=== PATIENT | female | born 1960 | race Caucasian/White ===

== ENCOUNTER → 2020-02-25 16:04 | Outpatient (CLI) | payer OTHER, SELFPAY ==
--- NOTE | ~2020-02-25 | MM_ITS ---
EXAMINATION: MM screening [facility] BI w fermin HISTORY: Screening mammogram TECHNIQUE: Craniocaudal and mediolateral oblique 3-D tomosynthesis images were obtained and synthetic 2-D images were generated. CAD analysis was submitted and interpreted. COMPARISON: 12/01/2018, 10/06/2017, 01/21/2014 BREAST PARENCHYMAL COMPOSITION: There are scattered areas of fibroglandular density. FINDINGS: Stable masses in the posterior third of the left breast are again noted. There is no eviden ce of suspicious mass, calcification, or architectural distortion to suggest malignancy in either narciso ast. There has been no suspicious interval change. IMPRESSION: 1. No mammographic evidence of malignancy. 2. Recommend routine screening mammography in one year. BI-RADS Category 2: Benign finding(s). Reviewed, dictated and finalized at location A. R SCRUBBER
== END ==
PROVIDERS: Visit Provider Student in an Organized Health Care Education/Training Program
DX: Z12.31 Encounter for screening mammogram for malignant neoplasm of breast (principal)
CPT/HCPCS: 77063; 77067

== ENCOUNTER → 2022-03-22 15:13 | Outpatient (CLI) | payer OTHER, SELFPAY ==
--- NOTE | ~2022-03-22 | MM_ITS ---
EXAMINATION: MM screening [facility] BI w fermin HISTORY: Screening mammogram TECHNIQUE: Craniocaudal and mediolateral oblique 3-D tomosynthesis images were obtained and synthetic 2-D images were generated. CAD analysis was submitted and interpreted. COMPARISON: 02/25/2020, 12/10/2018, 10/06/2017 BREAST PARENCHYMAL COMPOSITION: There are scattered areas of fibroglandular density. FINDINGS: Again noted are stable masses in the posterior third of the left breast No suspicious mass, calcification, or architectural distortion are identified in either breast to suggest malignancy. Th ere has been no suspicious interval change. IMPRESSION: 1. No mammographic evidence of malignancy. 2. Recommend routine screening mammography in one year. BI-RADS Category 2: Benign finding(s). Reviewed, dictated and finalized at location A. FOREMAN
== END ==
PROVIDERS: PCP Physician Assistant; Visit Provider Obstetrics & Gynecology
DX: Z12.31 Encounter for screening mammogram for malignant neoplasm of breast (principal)
CPT/HCPCS: 77063; 77067

== ENCOUNTER 2022-11-25 01:15 | Day surgery (SDC) | payer OTHER, SELFPAY ==
[2022-11-20 10:34] VITALS: BMI 42.7
[2022-11-25 11:11] VITALS: BP 171/95; PULSE 75; RESP 18; TEMP 36.5; O2SAT 97
[2022-11-25] MEDS: LACTATED RINGERS 1,000 ML 150 ML IV CONT (11:20)
--- NOTE | 2022-11-25 11:47 | PM.HPGS ---
History of Present Illness History of Present Illness Consent: Risks, benefits, and alternatives have been discussed and questions answered. Patient agrees to proceed with procedure. Chief complaint: positive cologuard Narrative: Bela Rodriguez is a 62 year old female Presents for screening colonoscopy. Patient recently found to have positive Cologuard test. Patient reports her current weight appetite and bowel movements are normal. Patient denies abdominal pain. She has had no bleeding. Family history is significant for an aunt with colon cancer. A brother with colon polyps. Review of Systems Review of Systems: Review of systems noncontributory. [facility] Surgical History Surgical History History of colonoscopy 2011 History of partial hysterectomy Hx of cholecystectomy Family History Family History Father Cerebrovascular accident Family history of diabetes mellitus in first degree relative Family history of heart disease in male family member before age 55 Family history of hemochromatosis Family history of congestive heart failure Patient's father is Diabetes mellitus Family history of congenital heart disease Family history of genetic disorder Mother Family history of heart disease in male family member before age 55 Family history of coronary artery disease Family history of congenital heart disease Family history of arthritis Grandparent Family history of malignant neoplasm Other Family history of allergic disorder Family history of cardiovascular disease Family history of kidney disease Hypertension Social History Social History Smoking packs per day: 1 Smoking cigarettes per day: 20.0 Smoking status: Former smoker Tobacco type: cigarettes Second hand tobacco smoke exposure: No Alcohol intake: never Substance use: never Substance use type: does not use Lack of Transportation: No Lack of Food: Never True Current Housing: I Have Housing Concerned About Future Housing: No Difficulty Paying Gas/Electric Bills: No Difficulty Paying for Meds: No Currently Unemployed: No Education: High School Diploma/GED Difficulty w/ Childcare or Family Care: No Living arrangements: alone Spiritual care concerns: No Meds Home Medications and Allergies Home Medications Medication Instructions Recorded Confirmed Type omeprazole 20 mg capsule,delayed 20 mg PO DAILY #90 caps 11/01/19 11/20/22 Rx release estradiol 0.05 mg/24 hr semiweekly 1 patch transdermal 2XW 12/08/19 11/20/22 History transdermal patch (Vivelle-Dot) lisinopril 20 1 tablet PO DAILY #90 tabs 12/24/21 11/20/22 Rx mg-hydrochlorothiazide 25 mg tablet multivitamin with minerals-folic 1 tablet PO DAILY 11/20/22 11/20/22 History acid 0.4 mg tablet Allergies Allergy/AdvReac Type Severity Reaction Status Date / Time ketorolac Allergy Intermediate Hives Verified 11/25/22 11:10 azithromycin Allergy Mild Rash Verified 11/25/22 11:10 milnacipran Allergy Unknown unkown Verified 11/25/22 11:10 Vital Signs Vital Signs - 24 hr 11/25/22 11:11 Temperature 97.7 F Pulse Rate 75 Respiratory Rate 18 Blood Pressure 171/95 H Pulse Oximetry 97 Oxygen Delivery Room Air Exam Narrative: Physical exam reveals patient to be alert. Oriented x3. Vital signs stable. HEENT exam is unremarkable. Patient is anicteric. Lungs are clear to auscultation and percussion. Heart is without murmur or extra sounds. Abdomen bowel sounds are present soft nontender with no organomegaly. Digital external rectal exam is normal. Assessment and Plan Assessment and plan (1) Positive colorectal cancer screening using Cologuard test: Code(s): R19.5 - Other fecal abnormalities Status: Acute Assessme
--- NOTE | 2022-11-25 12:22 | WPDANESEPPF ---
Anes - Initial Pre Proc Eval Procedure: Operation Date: 11/25/22 12:30 Proposed Procedures p Colonoscopy - Mich Valdes MD Date/Time: 11/25/22 12:22 Surgeon: Mich Valdes MD Pre Op Diagnosis: positive cologuard Patient Data Age: 62 Gender: F Height: 1.61 m Weight: 108.4 kg Last Vital Signs Temp 97.7 F 11/25/22 11:11 Pulse 75 11/25/22 11:11 Resp 18 11/25/22 11:11 BP 171/95 H 11/25/22 11:11 Pulse Ox 97 11/25/22 11:11 O2 Del Method Room Air 11/25/22 11:11 Allergies Allergy/AdvReac Type Severity Reaction Status Date / Time ketorolac Allergy Intermediate Hives Verified 11/25/22 11:10 azithromycin Allergy Mild Rash Verified 11/25/22 11:10 milnacipran Allergy Unknown unkown Verified 11/25/22 11:10 Home Medications Medication Instructions Recorded Confirmed Type omeprazole 20 mg capsule,delayed 20 mg PO DAILY #90 caps 11/01/19 11/20/22 Rx release estradiol 0.05 mg/24 hr semiweekly 1 patch transdermal 2XW 12/08/19 11/20/22 History transdermal patch (Vivelle-Dot) lisinopril 20 1 tablet PO DAILY #90 tabs 12/24/21 11/20/22 Rx mg-hydrochlorothiazide 25 mg tablet multivitamin with minerals-folic 1 tablet PO DAILY 11/20/22 11/20/22 History acid 0.4 mg tablet Patient hx anesthesia problems: none Family hx anesthesia problems: none Results Review: All pre-operative results and documents have been reviewed as part of the pre-operative evaluation. [facility] Surgical History Surgical History History of colonoscopy 2011 History of partial hysterectomy Hx of cholecystectomy Family History Family History Father Cerebrovascular accident Family history of diabetes mellitus in first degree relative Family history of heart disease in male family member before age 55 Family history of hemochromatosis Family history of congestive heart failure Patient's father is Diabetes mellitus Family history of congenital heart disease Family history of genetic disorder Mother Family history of heart disease in male family member before age 55 Family history of coronary artery disease Family history of congenital heart disease Family history of arthritis Grandparent Family history of malignant neoplasm Other Family history of allergic disorder Family history of cardiovascular disease Family history of kidney disease Hypertension Social History Social History Smoking packs per day: 1 Smoking cigarettes per day: 20.0 Smoking status: Former smoker Tobacco type: cigarettes Second hand tobacco smoke exposure: No Alcohol intake: never Substance use: never Substance use type: does not use Lack of Transportation: No Lack of Food: Never True Current Housing: I Have Housing Concerned About Future Housing: No Difficulty Paying Gas/Electric Bills: No Difficulty Paying for Meds: No Currently Unemployed: No Education: High School Diploma/GED Difficulty w/ Childcare or Family Care: No Living arrangements: alone Spiritual care concerns: No Anes - Eval Final PreProcedure Day of Procedure 11/25/22 12:22 Patient weight: morbidly obese Heart: regular rate and rhythm Lungs: clear to auscultation Airway: Mallampati scale class III Neurological: alert and oriented Last oral intake: >/= 8 hours ASA classification: III Emergent: no Anesthetic plan: proceed Anesthesia type and monitoring: general GIVS and standard monitoring Results Review: All pre-operative results and documents have been reviewed as part of the pre-operative evaluation. Informed Consent: The patient's anesthetic plan and its attendant risks and benefits were discussed with the patient/family/POA. Questions were solicited and answers provided to the satisfaction of the patient/family/POA.
[2022-11-25] MEDS: SIMETHICONE ORAL SUSPENSION 20 MG/0.3 ML 30 ML BOTTLE 0.6 ML IRRIGATION (12:48)
[2022-11-25 12:58] VITALS: BP 147/89; PULSE 73; RESP 16; O2SAT 96
[2022-11-25 13:08] VITALS: BP 128/86; PULSE 60; RESP 16; O2SAT 98
[2022-11-25 13:18] VITALS: BP 148/81; PULSE 63; RESP 21; O2SAT 97
== END 2022-11-25 13:31 | disposition home or self-care (01) ==
PROVIDERS: PCP Physician Assistant; Visit Provider Internal Medicine Gastroenterology
PROC: 0DJD8ZZ Inspection of Lower Intestinal Tract, Via Natural or Artificial Opening Endoscopic (ICD-10-PCS; CPT 45378; principal; 2022-11-25 12:30)
DX: Z12.11 Encounter for screening for malignant neoplasm of colon (principal); K57.30 Diverticulosis of large intestine without perforation or abscess without bleeding; K64.8 Other hemorrhoids; R19.5 Other fecal abnormalities; Z87.891 Personal history of nicotine dependence; E66.01 Morbid (severe) obesity due to excess calories; Z68.41 Body mass index [BMI] 40.0-44.9, adult; Z82.3 Family history of stroke
CPT/HCPCS: 45378; J2704; J7120

== ENCOUNTER 2024-02-20 07:50 | Outpatient (CLI) | payer OTHER, SELFPAY ==
--- NOTE | 2024-03-09 18:57 | WPDHOMESLEEP ---
Sleep Study - Home Unattended Date of Study: 02/20/24 Ordering Provider: Thuan Heredia DO Interpreting Provider: Jen Rosas DO Home Sleep Study Type: Watch PAT Height: 1.61 m Weight: 112.945 kg Body Mass Index: 43.4 Neck Circumference (inches): 18 [place]: 9 Reason for Sleep Study Snoring Sleep History The patient is a 64-year-old female that had a sleep study ordered by her primary care physician for evaluation of sleep apnea. The patient admits to snoring loudly, breathing interruptions during sleep and difficulty maintaining sleep. She denies stopping breathing in her sleep. She denies choking or gasping while asleep. She does have difficulty breathing while on her back. She denies morning headaches. She does have a dry or sore mouth/ throat in the morning. She admits to nocturnal heartburn. She denies nocturia. She denies having trouble falling asleep. She admits to having trouble remaining asleep. She denies having difficulty returning to sleep if she wakes up during the night. She denies using any hypnotics or sedatives. She denies feeling anxious about sleep. She does feel tired or fatigued during the day. She does feel on refreshed in the morning. She denies having the urge to fall asleep during the day. She denies feeling drowsy while driving. She denies sleep paralysis, cataplexy and hypnagogic / hypnopompic hallucinations. She admits to clenching and grinding her teeth while asleep. She denies kicking or jerking her legs excessively at night. She denies having a restless feeling in her legs. She goes to bed at 11:00 p.m. every night. It takes her 15 minutes to fall asleep. She gets 6 hours of sleep on her work days and 7-1/2 hours of sleep on her days off. Her sleep is somewhat restorative on her days off. She does take a planned naps in the afternoon that is less than 1 hour. The patient denies dream enactment behavior. She denies sleep walking is an adult and a child. She consumes 1-2 caffeinated beverages per day. She denies alcohol and tobacco use. She exercises 1-2 nights per week. [facility] Past Medical History Medical History Morbid obesity Surgical History Surgical History History of colonoscopy 2012 History of partial hysterectomy Hx of cholecystectomy Family History Family History Father Cerebrovascular accident Family history of diabetes mellitus in first degree relative Family history of heart disease in male family member before age 55 Family history of hemochromatosis Family history of congestive heart failure Patient's father is Diabetes mellitus Family history of congenital heart disease Family history of genetic disorder Mother Family history of heart disease in male family member before age 55 Family history of coronary artery disease Family history of congenital heart disease Family history of arthritis Grandparent Family history of malignant neoplasm Other Family history of allergic disorder Family history of cardiovascular disease Family history of kidney disease Hypertension Social History Social History Smoking packs per day: 1 Smoking cigarettes per day: 20.0 Smoking status: Former smoker Tobacco type: cigarettes Second hand tobacco smoke exposure: No Alcohol intake: current Substance use: never Substance use type: does not use Do You Feel Safe in your Home?: Yes Lack of Transportation: No Lack of Food: Never True Current Housing: I Have Housing Concerned About Future Housing: No Difficulty Paying Gas/Electric Bills: No Difficulty Paying for Meds: No Currently Unemployed: No Education: High School Diploma/GED Difficulty w/ Childcare or Family Care: No Living arrangements: alone Occupation/Education: occupation 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[employer] Gender identity (if verbalized by the patient): Female Spiritual care concerns: No Medications Home Medications Medication Instructions Recorded Confirmed Type omeprazole 20 mg capsule,delayed 20 mg PO DAILY #90 caps 11/01/19 02/16/24 Rx release estradiol 0.05 mg/24 hr semiweekly 1 patch transdermal 2XW 12/08/19 02/16/24 History transdermal patch (Vivelle-Dot) multivitamin with minerals-folic 1 tablet PO DAILY 11/20/22 02/16/24 History acid 0.4 mg tablet folic acid 1 mg tablet 1 mg PO DAILY 12/02/22 02/16/24 History hydrochlorothiazide 25 mg tablet 25 mg PO DAILY #90 tabs 01/13/24 02/16/24 Rx lisinopril 40 mg tablet 40 mg PO DAILY #90 tabs 01/13/24 02/16/24 Rx Sleep Procedure The sleep study was completed using [employer] a technically adequate device with seven channels: peripheral arterial tone, actigraphy, body position, snore, respiratory movement, pulse oximetry, sleep staging, and heart rate. Prior to using the device, the patient received verbal and written instructions for its application and was provided with the help desk phone number for additional telephonic instruction with 24-hour availability of qualified personnel to answer questions. The study was scored using CMS guidelines. Sleep Architecture The total recording time is 6 hrs, 43 min. The total sleep time is 5 hrs, 21 min. Sleep latency is 16 minutes. REM latency is 41 minutes. The patient had 9 episodes of waking. Sleep architecture shows 29.8% deep sleep, 43.9% light sleep, and (as % Total Sleep Time) showed NREM (Light 43.9%; Deep 29.8%), and a 26.3% stage REM. The patient spent 17.8% of total sleep time in the supine position. Sleep efficiency was 79.65. Respiratory Analysis The overall AHI (pAHI 4%:) is 11.1. The central AHI is 1.3. The AHI was 2.9 in NREM and 34.0 in REM sleep. The AHI was 2.1 in Supine and 13.1 in Non-supine sleep. Percent of Julio Nash respirations is 0.0. Oximetry Data The oxygen desaturation index (TRACI 4%:) is 10.7. The mean saturation is 94%, and the lowest saturation is 82%. Time spent with saturation < 88% is 3.2 minutes. Snoring Profile Snoring average intensity is 55 dB. The patient snored above 45 decibels for 269.5 minutes, 84.0% of sleep time. Cardiac Profile The average pulse rate is 62 beats per minutes. The lowest pulse rate is 55 bpm. The highest pulse rate reported is 93 bpm. Atrial fibrillation was not detected. Premature beats occur <0.1 per minute. Assessment and Plan Assessment and Plan (1) ARANZA (obstructive sleep apnea): Code(s): G47.33 - Obstructive sleep apnea (adult) (pediatric) Status: Acute Assessment and Plan: The patient had an overall AHI of 11.1 with desaturation down to 82%. This is consistent with mild sleep apnea. Due to the patient's hypertension, she qualifies for treatment. I recommend that the patient be prescribed Resmed AirSense 11 AutoPAP 5-15 cm H2O, CPAP mask/filters/tubing and heated humidity. This should be used with all episodes of sleep.? Compliance should be reviewed within 31-90 days of starting therapy for usage greater than 4 hours per night greater than 70% of the nights. The patient should be asked about symptoms such as?excessive daytime sleepiness, quality of sleep, decreased nocturia, increased?mental functioning such as memory, mood, and concentration. Data The data obtained during this sleep study is adequate for interpretation. Certification This sleep study has been reviewed by a board certified sleep medicine physician.
[2024-03-09 20:55] VITALS: BMI 43.4
== END 2024-02-23 11:19 | disposition home or self-care (01) ==
LOC: ANHCSM 07:51
PROVIDERS: PCP Internal Medicine; Visit Provider Internal Medicine
DX: G47.33 Obstructive sleep apnea (adult) (pediatric) (principal); G47.10 Hypersomnia, unspecified
CPT/HCPCS: 95800

== ENCOUNTER 2024-02-23 10:53 | Outpatient (CLI) | payer OTHER, SELFPAY ==
--- NOTE | ~2024-02-23 | CT_ITS ---
EXAMINATION: CT lung screening DATE: 02/23/2024 11:06 INDICATION: Enc for scrng for malignant neoplasm of respiratory organs TECHNIQUE: Computed tomography (CT) of the chest was performed without intravenous contrast. Addition al 3D reconstructions utilizing coronal maximum intensity projection (MIP) were performed. Automated exposure control and iterative reconstruction technique were employed. The dose-length product was 38 8.53 mGy-cm. COMPARISON: None FINDINGS: There are a few 2 mm or smaller nodules in the bilateral upper lobes. No larger pulmonary nodules, pn eumonia, pulmonary edema or pleural effusion. Heart size is normal. No pericardial effusion. Minimal atherosclerotic calcific location at the origin of the right coronary artery. Thoracic aorta is tomasz l in caliber. No pathologically enlarged thoracic lymphadenopathy. Diffuse hepatic steatosis. Cholecy stectomy clips the gallbladder fossa. Mild thoracic spondylosis. IMPRESSION: 1. Lung-RADS category 2: Benign appearance or behavior. Continue annual screening with noncontrast lo w-dose chest CT in 12 months. Reviewed, dictated and finalized at location B. L NEUTRALIZER IMPRESSION: 1. Lung-RADS category 2: Benign appearance or behavior. Continue annual screeni ng with noncontrast low-dose chest CT in 12 months.
== END 2024-02-23 10:54 | disposition home or self-care (01) ==
PROVIDERS: PCP Internal Medicine; Visit Provider Internal Medicine
DX: Z12.2 Encounter for screening for malignant neoplasm of respiratory organs (principal); Z87.891 Personal history of nicotine dependence
CPT/HCPCS: 71271

== ENCOUNTER 2024-03-08 07:39 | Outpatient (CLI) | payer OTHER, SELFPAY ==
--- NOTE | ~2024-03-08 | MM_ITS ---
EXAMINATION: MM screening [facility] BI w fermin HISTORY: Screening TECHNIQUE: Craniocaudal and mediolateral oblique 3-D tomosynthesis images were obtained and synthetic 2-D images were generated. CAD analysis was submitted and interpreted. COMPARISON: Comparison to multiple prior studies sequentially, with oldest reviewed study dated 12/10. BREAST PARENCHYMAL COMPOSITION: Not dense: There are scattered areas of fibroglandular density. FINDINGS: There is no evidence of suspicious mass, calcification, or architectural distortion to sugg est malignancy in either breast. There has been no suspicious interval change. IMPRESSION: 1. No mammographic evidence of malignancy. 2. Recommend routine screening mammography in one year. BI-RADS Category 1: Negative Reviewed, dictated and finalized at location B. CHER
== END 2024-03-08 07:40 | disposition home or self-care (01) ==
LOC: MICIMG 07:40
PROVIDERS: PCP Internal Medicine; Visit Provider Obstetrics & Gynecology
DX: Z12.31 Encounter for screening mammogram for malignant neoplasm of breast (principal)
CPT/HCPCS: 77063; 77067

== ENCOUNTER 2024-06-25 14:27 | Outpatient (CLI) | payer OTHER, SELFPAY ==
--- OUTSIDE RECORDS SUMMARY | 2024-06-25 14:30 | XMS_ITS | Clinical Summary ---
Author Organization [facility] [place] [address] Care Team Providers Care Improvement Analyst Name Role Phone Oscar Washington PA-C Primary Care Provider [phone] Allergies Active Allergy Reactions Criticality Noted Date Comments Azithromycin Hives 12/06/2022 Ketorolac Tromethamine Hives 12/06/2022 Medications estradiol (VIVELLE-DOT) 0.05 MG/24HR patch Place 1 patch (0.05 mg total) onto the skin twice a week. 10/17/2022 Active lisinopril-hydr oCHLOROthiazide (ZESTORETIC) 20-25 MG tablet Take 1 tablet by mouth daily. 09/13/2022 Active sulfamethoxazol e-trimethoprim (BACTRIM DS) 800-160 MG tablet Take 1 tablet by mouth 2 (two) times daily. for 10 days 12/02/2022 Active Multiple Vitamins-Minera ls (WOMENS MULTI VITAMIN & MINERAL OR) Active omeprazole (PRILOSEC) 20 MG capsule Take 1 capsule (20 mg total) by mouth daily. Active Social History Tobacco Use Types Packs/Day Years Used Date Smoking Tobacco: Never Assessed Comments Unknown Sex and Gender Information Value Date Recorded Sex Assigned at Not on file Legal Sex Female 5:01 PM CDT Gender Identity Not on file Sexual Orientation Not on file Last Filed Vital Signs Vital Sign Reading Time Taken Comments Blood Pressure 148/82 12/06/2022 12:28 PM CDT Pulse 94 12/06/2022 12:28 PM CDT Temperature 36.6 C (97.8 F) 12/06/2022 12:28 PM CDT Respiratory Rate 20 12/06/2022 12:28 PM CDT Oxygen Saturation 98% 12/06/2022 12:28 PM CDT Inhaled Oxygen Concentration - - Weight 108.9 kg (240 lb) 12/06/2022 12:28 PM CDT Height 160 cm (5' 3 ) 12/06/2022 12:28 PM CDT Body Mass Index 42.51 12/06/2022 12:28 PM CDT Plan of Treatment Health Maintenance Due Date Last Done Comments Colorectal Cancer Screening Colonoscopy (10 Years) 1961 Annual Physical 02/04/1964 Hepatitis C 1979 DTaP, Tdap and Td Vaccines (1 - Tdap) 02/04/1980 Mammogram Screening 2001 Zoster Vaccines (1 of 2) 2011 RSV Immunization or 60+ Years (1 - Risk 60-74 years 1-dose series) 2021 COVID-19 Vaccine ( - season) 2023 05/15/2021, 04/24/2021 Influenza Adult (#1) 2024 12/30/2019, 01/08/2019, 01/21/2018, Additional history exists Meningococcal B Vaccine Aged Out No l onger eligible based on patient's age to complete this topic Meningococcal Vaccine Aged Out No leila bruno eligible based on patient's age to complete this topic Pneumococcal Vaccine: Pediatrics (0 to 5 Years) and At-Risk Patients (6 to 64 Years) Aged Out No longer eligible based on patient's age to complete this topic RSV Immunizations Under 20 Months Aged Out No longer eligible based on patient's age to complete this topic Insurance [employer] Care Teams Improvement Analyst Relationship Specialty Start Date End Date Oscar Washington PA-C [address] [facility] [address] [place], [place] [id number] PCP - General PHYSICIAN ARTIST SUSPECT 12/06/22
--- NOTE | 2024-06-29 09:58 | WPDPFTINT ---
PFT Procedure Performed PFT Procedure Performed Spirometry with Pre/Post Bronchodilator Plethysmography (Lung Vol) Diffusing Cap (DLCO) Flow Vol Loop PFT Interpretation Lung volumes were measured with the body plethysmography method. The diminished expiratory reserve volume is due to obesity. The remaining lung volumes are unremarkable. Spirometry showed normal expiratory flow rates and a normal FEV1 to FVC ratio of 79%. Following administration of a bronchodilator there was no significant increase in expiratory flow rates. Lung diffusion capacity is within the normal range at 85% predicted. The flow volume loop is unremarkable. Impression: Spirometry, lung volumes, and lung diffusion capacity all within the normal range.
== END 2024-06-25 14:28 | disposition home or self-care (01) ==
PROVIDERS: PCP Internal Medicine; Visit Provider Internal Medicine
DX: R06.02 Shortness of breath (principal)
CPT/HCPCS: 94060; 94726; 94729

== ENCOUNTER 2024-07-23 09:18 | Outpatient (CLI) | payer OTHER, SELFPAY ==
--- NOTE | 2024-07-23 09:23 | EST_ITS ---
Patient Info Name: Bela Rodriguez Age: 64 years : 1960 Gender: Female Ht: 63 in Wt: 250 lbs BSA: 2.31 m2 HR: 60 bpm BP: 135 / 78 mmHg Exam Date: 07/23/2024 9:35 AM Exam Location: Echo Lab Patient Status: Outpatient Admit Date: 07/23/2024 Staff Ordering Physician: Thuan Heredia DO Electrical Sign Wirer: Becky Bliss RDCS Attending Provider: JUAN PALACIOS Referring Physician: Yan MICHAEL; Exercise Technologist: Becky Bliss RDCS Exercise Physician: Juan Palacios DO Exam Type: CA stress echo Study Info Indications R06.02 - Shortness of breath Treadmill exercise stress echocardiogram is performed. Summary 1. 1. Negative Micky exercise stress test for ischemic ST changes by ECG criteria. 2. 2. Poor functional capacity, achieving 4.7 METs of workload. 3. 3. Appropriate HR response to exercise. 4. 4. Appropriate HR recovery at 1 minute post exercise. 5. 5. Negative stress echocardiogram for ischemia by wall motion analysis. 6. 6. Patient informed of the above results. Stress Echo Findings Left Ventricle Appropriate increase in LV endocardial thickening with systole. Appropriate augmentation of contractility with systole. No wall motion abnormality. Left Ventricle Normal LV systolic function, no wall motion abnormality. Protocol: Micky Stress ECG Details Stage: REST Duration (min): 1 min : 22 sec Speed (mph): 0.0 Grade (%): 0 HR (bpm): 61 SBP (mmHg): 135 DBP (mmHg): 78 METS: --- Stage: REST Duration (min): 11 min : 44 sec Speed (mph): 0.0 Grade (%): 0 HR (bpm): 70 SBP (mmHg): 135 DBP (mmHg): 78 METS: --- Stage: STAGE 1 Duration (min): 1 min : 0 sec Speed (mph): 1.7 Grade (%): 10 HR (bpm): 119 SBP (mmHg): 135 DBP (mmHg): 78 METS: --- Stage: STAGE 1 Duration (min): 2 min : 0 sec Speed (mph): 1.7 Grade (%): 10 HR (bpm): 126 SBP (mmHg): 135 DBP (mmHg): 78 METS: --- Stage: STAGE 1 Duration (min): 3 min : 0 sec Speed (mph): 1.7 Grade (%): 10 HR (bpm): 138 SBP (mmHg): 135 DBP (mmHg): 78 METS: --- Stage: STAGE 2 Duration (min): 0 min : 2 sec Speed (mph): 2.5 Grade (%): 12 HR (bpm): 126 SBP (mmHg): 135 DBP (mmHg): 78 METS: --- Stage: RECOVERY Duration (min): 0 min : 57 sec Speed (mph): 0.0 Grade (%): 0 HR (bpm): 132 SBP (mmHg): 135 DBP (mmHg): 78 METS: --- Stage: RECOVERY Duration (min): 1 min : 57 sec Speed (mph): 0.0 Grade (%): 0 HR (bpm): 115 SBP (mmHg): 135 DBP (mmHg): 78 METS: --- Stage: RECOVERY Duration (min): 2 min : 57 sec Speed (mph): 0.0 Grade (%): 0 HR (bpm): 92 SBP (mmHg): 135 DBP (mmHg): 78 METS: --- Stage: RECOVERY Duration (min): 3 min : 57 sec Speed (mph): 0.0 Grade (%): 0 HR (bpm): 92 SBP (mmHg): 182 DBP (mmHg): 61 METS: --- Stage: RECOVERY Duration (min): 4 min : 57 sec Speed (mph): 0.0 Grade (%): 0 HR (bpm): 85 SBP (mmHg): 149 DBP (mmHg): 63 METS: --- Stage: RECOVERY Duration (min): 5 min : 57 sec Speed (mph): 0.0 Grade (%): 0 HR (bpm): 84 SBP (mmHg): 149 DBP (mmHg): 63 METS: --- Stage: RECOVERY Duration (min): 6 min : 57 sec Speed (mph): 0.0 Grade (%): 0 HR (bpm): 82 SBP (mmHg): 147 DBP (mmHg): 64 METS: --- Stage: RECOVERY Duration (min): 7 min : 57 sec Speed (mph): 0.0 Grade (%): 0 HR (bpm): 82 SBP (mmHg): 147 DBP (mmHg): 64 METS: --- Stage: RECOVERY Duration (min): 8 min : 57 sec Speed (mph): 0.0 Grade (%): 0 HR (bpm): 80 SBP (mmHg): 135 DBP (mmHg): 64 METS: --- Stage: RECOVERY Duration (min): 9 min : 4 sec Speed (mph): 0.0 Grade (%): 0 HR (bpm): 80 SBP (mmHg): 135 DBP (mmHg): 64 METS: --- Rest HR: 70 bpm Peak HR: 151 bpm Rest Sys BP: 135 mmHg Peak Sys BP: 182 mmHg Max Pred HR: 157 bpm % Max Pred HR: 96 % Target HR: 133 bpm Max RPP: 27,482 bpm*mmHg Grover Score: 0 Termination Reason: Reached target heart rate or workload Cardiac Symptoms: Shortness of breath Max ST Seg Deviation: 0.70 mm Total Time: 3 min : 2 sec Rest Beckham BP: 78 mmHg Peak Beckham BP: 61 mmHg Angina Score: None Total METS: 4.7 Resting ECG Sinus rhythm. Stress ECG No ST changes. Arrhythmias None. Report Signatures Stress ECG Echo
--- OUTSIDE RECORDS SUMMARY | 2024-07-23 09:43 | XMS_ITS | Clinical Summary ---
Author Organization [facility] Address [facility] [address] [place] [address] Care Team Providers Care Manager Bilingual Name Role Phone Oscar Washington PA-C Primary Care Provider [phone] Allergies Active Allergy Reactions Criticality Noted Date [...] C 1979 DTaP, Tdap and Td Vaccines ( 1 - Tdap) 02/04/1980 Mammogram Screening 2001 Zoster Vaccines (1 of 2) 2011 RSV Immunization or 60+ Years (1 - Risk 60-74 years 1-dose series) 2021 COVID-19 Vaccine (3 - 2023-2 5 season) 2023 05/15/2021, 04/24/2021 Meningococcal B Vaccine Aged Out No l onger eligible based on patient's age to complete this topic Meningococcal Vaccine Aged Out No leila bruno eligible based on patient's age to complete this topic Pneumococcal Vaccine: Pediatrics (0 to 5 Years) and At-Risk Patients (6 to 64 Years) Aged Out No longer eligible b ased on patient's age to complete this topic RSV Immunizations Under 20 Months Aged Out No longer eligible b ased on patient's age to complete this topic Insurance [employer] Care Teams Manager Bilingual Relationship Specialty Start Date End Date Oscar Washington PA-C [address] [facility] [address] [place] [address] PCP - General PHYSICIAN USER INTERFACE DEVELOPER 12/06/22
== END 2024-07-23 09:19 | disposition home or self-care (01) ==
PROVIDERS: PCP Internal Medicine; Visit Provider Internal Medicine
DX: R06.02 Shortness of breath (principal)
CPT/HCPCS: 93351

== ENCOUNTER 2024-09-21 08:08 | Outpatient (CLI) | payer OTHER, SELFPAY ==
--- NOTE | 2024-10-05 11:50 | WPDHOLTEREM ---
Holter/Event Monitor Holter/Event Monitor Date of procedure: 09/21/24 Holter/Event Procedure: 3-7 Day Holter Monitor Indications: Palpitations Conclusion: 1. 4 days holter monitor on 09/21/24. 2. Predominant rhythm is sinus rhythm. HR range 46-140 bpm; average HR 66 bpm. HR at 46 bpm was on 09/24/24 at 3:13 am. HR at 140 bpm was on 09/22/24 at 9:52 pm. 3. There are rare premature supraventricular complexes, rare supraventricular couplets, and rare supraventricular triplets. There are 4 episodes of supraventricular tachycardia with fastest at 130 bpm and longest lasting 6 beats. 4. There are rare premature ventricular complexes. No ventricular tachycardia. 5. No significant pauses greater than 3 seconds. 6. Patient reports 12 episodes of symptoms of shortness of breath, heart beat strong and hard, weakness, numbness in forearms, wheezing which demonstrate sinus rhythm, HR range 56-132 bpm with 3 episodes with PAC's and 2 episodes with PVC's.
== END 2024-09-21 08:09 | disposition home or self-care (01) ==
PROVIDERS: PCP Internal Medicine; Visit Provider Internal Medicine
DX: R00.2 Palpitations (principal); I49.1 Atrial premature depolarization; I47.10 Supraventricular tachycardia, unspecified; I49.3 Ventricular premature depolarization
CPT/HCPCS: 93242